=== PATIENT | female | born 1955 | race Asian ===

== ENCOUNTER → 2017-01-22 | Outpatient (CLI) | payer OTHER ==
[~2017-01-22] MED LIST: CENTRUM SILVER PO; ENSURE LIQUID237 M2 PO; LISINOPRIL5 MG PO; NO MEDICATIONS; OMEPRAZOLE40 MG PO
--- NOTE | ~2017-01-22 | CT2 ---
[facility] A Service of [facility] RADIOLOGY TEXT RESULTS PATIENT: BOGDAN MUNGUIA [facility] : 55 UNIT #: [id number] AGE: [address]: Carlos Alberto Hubbard MD SEX: F ORDER DR: [id number] [facility]. [place], [place] [address] [id number] O MR#: [id number] Acc #: [id number] NAME: BOGDAN MUNGUIA. : 1955 SEX: F STUDY DATE/TIME: 01/22/2017 13:01 UNIT: [facility] ROOM: STUDY DESCRIPTION: CT Abd and Pelv W Cont Attending Physician: Carlos Alberto Hubbard M.D. Referring Physician: Carlos Alberto Hubbard M.D. Ordering Physician: Carlos Alberto Hubbard M.D. Primary Care Physician: Pool Not Listed MEDICAL IMAGING REPORT This report is preliminary unless electronic signature is present EXAM CT of the abdomen and pelvis with contrast. INDICATION Colon cancer. Routine followup. Observation for metastatic disease. TECHNIQUE CT of the abdomen and pelvis was performed following the administration of oral and IV contrast. Coronal and sagittal reformatted images were obtained. This CT exam was performed with one or more of the following radiation dose reduction techniques: automatic exposure control, adjustment of mA and/or kV according to patient size, and iterative reconstruction. COMPARISON Comparison is made with 02/18/2016. FINDINGS Please refer to separately dictated CT of the chest for findings above the diaphragm. There is a stable tiny presumed cyst in the dome of the liver. This has been present since at least January 2015. The remainder of the liver is unremarkable. The gallbladder is unremarkable. Stable large cyst in the spleen. The kidneys are unremarkable. The adrenal glands and pancreas are unremarkable. PELVIS: Postop changes of the sigmoid. The remainder of the colon is unremarkable. Stable small right adnexal cyst. No evidence for free fluid. Normal appendix. The bone windows are unremarkable. IMPRESSION No evidence for metastatic disease. [facility] A Service of [facility] RADIOLOGY TEXT RESULTS PATIENT: BOGDAN MUNGUIA LOCATION: [facility] : 55 UNIT #: [id number] AGE: [address]: Carlos Alberto Hubbard MD SEX: F ORDER DR: Dictated by... Hira Puga M.D. THIS IS AN ELECTRONICALLY VERIFIED REPORT Hira Puga M.D. at 01/23/2017 7:01 AM MARNIE/denise TD: 01/23/2017 01:31 JOB #: [id number] MEDICAL IMAGING REPORT Page 1 of 1 COPY
--- NOTE | ~2017-01-22 | CT55 ---
[facility] A Service of [facility] RADIOLOGY TEXT RESULTS PATIENT: BOGDAN MUNGUIA LOCATION: [facility] : 55 UNIT #: [id number] AGE: [address]: Carlos Alberto Hubbard MD SEX: F ORDER DR: [id number] [place], [place] [address] [id number] O MR#: [id number] Acc #: [id number] NAME: BOGDAN MUNGUIA. : 1955 SEX: F STUDY DATE/TIME: 01/22/2017 13:01 UNIT: [facility] ROOM: STUDY DESCRIPTION: CT Chest W Con Attending Physician: Carlos Alberto Hubbard M.D. Referring Physician: Carlos Alberto Hubbard M.D. Ordering Physician: Carlos Alberto Hubbard M.D. Primary Care Physician: Pool Not Listed MEDICAL IMAGING REPORT This report is preliminary unless electronic signature is present EXAM CT of the chest with contrast. INDICATION Colon cancer. Observation for metastatic disease. Routine follow up. TECHNIQUE CT chest performed with contrast. Coronal and sagittal reformatted images are obtained. This CT exam was performed with one or more of the following radiation dose reduction techniques: automatic exposure control, adjustment of mA and/or kV according to patient size, and iterative reconstruction. COMPARISON 02/18/2016 FINDINGS No suspicious pulmonary nodule. No suspicious lymphadenopathy. No pleural effusion. Please refer to separately dictated CT of the abdomen and pelvis for findings below the diaphragm. The bone windows are unremarkable. IMPRESSION No evidence for metastatic disease. Dictated by... Hira Puga M.D. THIS IS AN ELECTRONICALLY VERIFIED REPORT Hira Puga M.D. at 01/23/2017 7:01 AM [facility] A Service [facility] RADIOLOGY TEXT RESULTS PATIENT: BOGDAN MUNGUIA LOCATION: [facility] : 55 UNIT #: [id number] AGE: [address]: Carlos Alberto Hubbard MD SEX: F ORDER DR: Shantel TD: 01/23/2017 01:35 JOB #: [id number] MEDICAL IMAGING REPORT Page 1 of 1 COPY
[2017-01-22 12:11] LABS: POC - CREATININE 0.98 mg/dL (0.44-1.03); POC - GFR >60.0 mL/min (>60)
== END | disposition home or self-care (01) ==
LOC: CCAT 09:42
PROVIDERS: Internal Medicine Hematology & Oncology
DX: C18.7 Malignant neoplasm of sigmoid colon (principal); I10 Essential (primary) hypertension; K59.00 Constipation, unspecified
CPT/HCPCS: 71260; 74177; 82565; Q9967